=== PATIENT | female | born 1935 | race Caucasian/White ===

== ENCOUNTER 2021-05-29 02:49 | Inpatient (IN) | payer BC, OTHER ==
[~2021-05-29] VITALS: Ht 157.5 cm; Wt 83.0 kg
[~2021-05-29 02:49] MED LIST: AMLO-496 PO; ASPI1TAB19 PO; DIPH25TA26 PO; DOXE10CA PO; DULO60CA PO; FURO40TA4 PO; OMEP20CA74 PO; POTA-220 PO; PREG50CA PO; SIMV-8 PO; ZOLP10TA6 PO
[2021-05-29 03:58] LABS: Basophils # (auto) 0.2 10 ^3/uL (0-0.2); Basophils % (auto) 1.3 % (0.0-2.0); Eosinophils # (auto) 0.1 10 ^3/uL (0-0.8); Eosinophils % (auto) 0.5 % (0.0-7.0); Hematocrit 36.7 % (36.0-46.0); Hemoglobin 12.3 g/dL (12.2-16.2); Lymphocytes # (auto) 0.9 10 ^3/uL (0.4-5.4); Lymphocytes % (auto) 5.4 % (10.0-50.0); Mean Corpuscular Hemoglobin 30.6 pg (28.0-32.0); Mean Corpuscular Hgb Conc. 33.4 g/dL (32.0-36.0); Mean Corpuscular Volume 91.5 fL (80.0-100.0); Monocytes # (auto) 0.6 10 ^3/uL (0-1.3); Monocytes % (auto) 3.5 % (0.0-12.0); Neutrophils # (auto) 15.5 10 ^3/uL (1.6-8.6); Neutrophils % (auto) 89.3 % (37.0-80.0); Red Blood Cells 4.01 10^6/uL (4.0-5.20); Red Cell Distribution Width 14.8 % (11.8-14.3); White Blood Cell 17.4 10^3/uL (4.4-10.8)
[2021-05-29] MEDS ORDERED: SODIUM CHLORIDE 0.9% 500 ML IV ONE (04:00)
[2021-05-29 04:15] LABS: Albumin 3.3 g/dL (3.4-5.0); Calcium 9.1 mg/dL (8.5-10.1); Potassium 4.6 mmol/L (3.5-5.1)
[2021-05-29 04:19] LABS: Bilirubin, Total 0.6 mg/dL (0.2-1.0); Total Protein 6.7 g/dL (6.4-8.2)
[2021-05-29] MEDS ORDERED: CIPROFLOXACIN 400MG/200ML 200 ML IV ONE (09:45)
[2021-05-29] MEDS ORDERED: MORPHINE SULFATE 4 MG/ML SYR/VIAL IV ONE (09:45)
[2021-05-29] MEDS ORDERED: ONDANSETRON HCL 4 MG/2 ML VIAL IV ONE ×2 (09:45→20:15)
[2021-05-29] MEDS ORDERED: MORPHINE SULFATE INJECTION 2 MG/ML SYRG IV PRN (13:45)
[2021-05-29] MEDS ORDERED: NITROGLYCERIN 0.4 MG SL TAB SL PRN (13:45)
[2021-05-29] MEDS: SODIUM CHLORIDE 0.9% 1,000 ML IV SCH (13:45)
[2021-05-29] MEDS ORDERED: LACTULOSE 20Gm/30ML SOLN PO PRN (14:45)
[2021-05-29 15:45] VITALS: BP 101/61
[2021-05-29 17:00] VITALS: BP 97/39
[2021-05-29 20:00] VITALS: BP 137/64
[2021-05-29] MEDS ORDERED: MORPHINE SULFATE INJECTION 2 MG/ML SYRG IV ONE (20:15)
[2021-05-29 22:00] VITALS: BP 137/64
[2021-05-29] MEDS ORDERED: PIPERACILLIN-TAZOB 3.375GM 100 ML IV SCH (22:00)
[2021-05-30] MEDS: LACTULOSE 20Gm/30ML SOLN PO SCH ×5 (06:00→23:55)
[2021-05-30 06:01] LABS: Basophils # (auto) 0 10 ^3/uL (0-0.2); Basophils % (auto) 0.1 % (0.0-2.0); Eosinophils # (auto) 0 10 ^3/uL (0-0.8); Hematocrit 30.4 % (36.0-46.0); Hemoglobin 10.2 g/dL (12.2-16.2); Lymphocytes # (auto) 0.5 10 ^3/uL (0.4-5.4); Lymphocytes % (auto) 3.3 % (10.0-50.0); Mean Corpuscular Hemoglobin 30.4 pg (28.0-32.0); Mean Corpuscular Hgb Conc. 33.6 g/dL (32.0-36.0); Mean Corpuscular Volume 90.5 fL (80.0-100.0); Monocytes # (auto) 1.1 10 ^3/uL (0-1.3); Neutrophils # (auto) 14.2 10 ^3/uL (1.6-8.6); Neutrophils % (auto) 89.6 % (37.0-80.0); Red Blood Cells 3.35 10^6/uL (4.0-5.20); Red Cell Distribution Width 14.7 % (11.8-14.3); White Blood Cell 15.8 10^3/uL (4.4-10.8)
[2021-05-30 06:12] LABS: Albumin 2.6 g/dL (3.4-5.0); Calcium 8.2 mg/dL (8.5-10.1); Potassium 4.4 mmol/L (3.5-5.1)
[2021-05-30 06:18] LABS: Bilirubin, Total 0.4 mg/dL (0.2-1.0); Total Protein 5.5 g/dL (6.4-8.2)
[2021-05-30 09:00] VITALS: BP 108/46
[2021-05-30] MEDS: ENOXAPARIN SOD 40 MG/0.4 ML SYRINGE SC SCH (10:00)
[2021-05-30] MEDS: SODIUM CHLORIDE 0.9% 1,000 ML IV SCH ×2 (11:13→23:05)
[2021-05-30 12:04] VITALS: BP 113/51
[2021-05-30 15:11] LABS: Urine Bacteria NONE SEEN /hpf (None Seen); Urine Blood Negative /uL (Negative); Urine WBC 9 /hpf (0 - 5)
[2021-05-30] MEDS: cefTRIAXone 1GM/50ML D5W 50 ML IV SCH (16:15)
[2021-05-30 16:50] VITALS: BP 100/48
[2021-05-30 20:00] VITALS: BP 93/45
[2021-05-30 22:00] VITALS: BP 93/45
[2021-05-31 05:00] VITALS: BP 105/43
[2021-05-31] MEDS: LACTULOSE 20Gm/30ML SOLN PO SCH ×4 (05:41→17:52)
[2021-05-31 08:00] VITALS: BP 116/5
[2021-05-31] MEDS: cefTRIAXone 1GM/50ML D5W 50 ML IV SCH (09:00)
[2021-05-31] MEDS: ENOXAPARIN SOD 40 MG/0.4 ML SYRINGE SC SCH (10:00)
[2021-05-31 10:18] LABS: Basophils # (auto) 0.1 10 ^3/uL (0-0.2); Basophils % (auto) 1.5 % (0.0-2.0); Eosinophils # (auto) 0 10 ^3/uL (0-0.8); Eosinophils % (auto) 0.5 % (0.0-7.0); Hematocrit 26.7 % (36.0-46.0); Hemoglobin 8.9 g/dL (12.2-16.2); Lymphocytes # (auto) 0.6 10 ^3/uL (0.4-5.4); Mean Corpuscular Hemoglobin 30.4 pg (28.0-32.0); Mean Corpuscular Hgb Conc. 33.5 g/dL (32.0-36.0); Mean Corpuscular Volume 90.7 fL (80.0-100.0); Monocytes # (auto) 0.6 10 ^3/uL (0-1.3); Monocytes % (auto) 6.3 % (0.0-12.0); Neutrophils # (auto) 7.9 10 ^3/uL (1.6-8.6); Neutrophils % (auto) 85.7 % (37.0-80.0); Red Blood Cells 2.94 10^6/uL (4.0-5.20); Red Cell Distribution Width 15.4 % (11.8-14.3); White Blood Cell 9.3 10^3/uL (4.4-10.8)
[2021-05-31 10:33] LABS: Calcium 8.8 mg/dL (8.5-10.1); Potassium 4.1 mmol/L (3.5-5.1)
[2021-05-31 10:35] LABS: BUN/Creatinine Ratio 25.8
[2021-05-31 11:00] VITALS: BP 120/65
[2021-05-31] MEDS ORDERED: ACETAMINOPHEN 325 MG TAB PO PRN (11:30)
[2021-05-31] MEDS ORDERED: ONDANSETRON HCL 4 MG/2 ML VIAL IV PRN (11:30)
[2021-05-31] MEDS: PREGABALIN 25 MG CAP PO SCH ×2 (14:00→21:31)
[2021-05-31 22:00] VITALS: BP 119/53
[2021-05-31] MEDS ORDERED: traZODone HCL 50 MG TAB PO SCH (22:00)
[2021-06-01] MEDS: LACTULOSE 20Gm/30ML SOLN PO SCH ×3 (01:13→12:00)
[2021-06-01 05:15] VITALS: BP 113/50
[2021-06-01 06:01] LABS: Basophils # (auto) 0.1 10 ^3/uL (0-0.2); Basophils % (auto) 1.3 % (0.0-2.0); Eosinophils # (auto) 0.1 10 ^3/uL (0-0.8); Eosinophils % (auto) 1.1 % (0.0-7.0); Hematocrit 26.4 % (36.0-46.0); Hemoglobin 8.9 g/dL (12.2-16.2); Lymphocytes % (auto) 14.4 % (10.0-50.0); Mean Corpuscular Hemoglobin 30.7 pg (28.0-32.0); Mean Corpuscular Hgb Conc. 33.7 g/dL (32.0-36.0); Monocytes # (auto) 0.5 10 ^3/uL (0-1.3); Monocytes % (auto) 7.5 % (0.0-12.0); Neutrophils # (auto) 5.2 10 ^3/uL (1.6-8.6); Neutrophils % (auto) 75.7 % (37.0-80.0); Red Cell Distribution Width 15.1 % (11.8-14.3); White Blood Cell 6.9 10^3/uL (4.4-10.8)
[2021-06-01 06:12] LABS: Calcium 9.1 mg/dL (8.5-10.1)
[2021-06-01 06:15] LABS: BUN/Creatinine Ratio 23.2
[2021-06-01] MEDS: PREGABALIN 25 MG CAP PO SCH ×2 (06:27→14:00)
[2021-06-01 09:00] VITALS: BP 125/58
[2021-06-01] MEDS: cefTRIAXone 1GM/50ML D5W 50 ML IV SCH (09:00)
[2021-06-01] MEDS: ENOXAPARIN SOD 40 MG/0.4 ML SYRINGE SC SCH (10:00)
[2021-06-01] MEDS ORDERED: POLY33504 PO (11:38)
[2021-06-01] MEDS ORDERED: LACT10SO3 PO (11:38)
[2021-06-01 13:00] VITALS: BP 123/57
== END 2021-06-01 15:00 | disposition home or self-care (01) | DRG 388 ==
LOC: EDBD 02:49 → ER 02:52 → OVERFLOW 13:31 → WEST WING 15:26 → CENTRAL 05-30 07:53 → OVERFLOW 05-30 17:28 → CENTRAL 05-30 18:25
PROVIDERS: ADMIT Internal Medicine; ATTEND Internal Medicine
PROC: 05HF33Z Insertion of Infusion Device into Left Cephalic Vein, Percutaneous Approach (ICD-10-PCS; principal; 2021-05-30)
PROC: B54NZZA Ultrasonography of Left Upper Extremity Veins, Guidance (ICD-10-PCS; 2021-05-30)
DX: K56.41 Fecal impaction (principal); N17.0 Acute kidney failure with tubular necrosis; N39.0 Urinary tract infection, site not specified; Z20.822 Contact with and (suspected) exposure to COVID-19; K80.20 Calculus of gallbladder without cholecystitis without obstruction; M79.7 Fibromyalgia; I50.9 Heart failure, unspecified; J44.9 Chronic obstructive pulmonary disease, unspecified; D72.829 Elevated white blood cell count, unspecified; K21.9 Gastro-esophageal reflux disease without esophagitis; Z88.2 Allergy status to sulfonamides; Z79.899 Other long term (current) drug therapy; Z85.3 Personal history of malignant neoplasm of breast; Z90.13 Acquired absence of bilateral breasts and nipples
CPT/HCPCS: 36415; 51702; 74176; 80048; 80053; 81001; 83605; 83690; 84484; 85025; 87040; 87086; 87493; 96361; 96365; 96375; 97163; G0378; J0696; J2405; J2543

== ENCOUNTER 2022-01-26 16:51 | Emergency (ER) | payer OTHER ==
[~2022-01-26] VITALS: Ht 160 cm; Wt 82.0 kg
[~2022-01-26 16:51] MED LIST changes: +LACT10SO3 PO; +POLY33504 PO
[2022-01-26] MEDS ORDERED: ACETAMINOPHEN 325 MG TAB PO ONE (18:45)
[2022-01-26 19:26] LABS: Basophils # (auto) 0.1 10 ^3/uL (0-0.2); Basophils % (auto) 1.2 % (0.0-2.0); Eosinophils # (auto) 0.2 10 ^3/uL (0-0.8); Eosinophils % (auto) 2.8 % (0.0-7.0); Lymphocytes # (auto) 0.7 10 ^3/uL (0.4-5.4); Lymphocytes % (auto) 8.7 % (10.0-50.0); Mean Corpuscular Hemoglobin 30.1 pg (28.0-32.0); Mean Corpuscular Hgb Conc. 33.2 g/dL (32.0-36.0); Mean Corpuscular Volume 90.7 fL (80.0-100.0); Monocytes # (auto) 0.6 10 ^3/uL (0-1.3); Monocytes % (auto) 7.9 % (0.0-12.0); Neutrophils # (auto) 6.2 10 ^3/uL (1.6-8.6); Neutrophils % (auto) 79.4 % (37.0-80.0); Nucleated Red Blood Cells % 0.1 %; Red Blood Cells 3.97 10^6/uL (4.0-5.20); Red Cell Distribution Width 14.2 % (11.8-14.3); White Blood Cell 7.9 10^3/uL (4.4-10.8)
[2022-01-26 19:50] LABS: Potassium 4.4 mmol/L (3.5-5.1)
[2022-01-26 19:51] LABS: Albumin 3.4 g/dL (3.4-5.0); BUN/Creatinine Ratio 19.9; Bilirubin, Total 0.3 mg/dL (0.2-1.0); Calcium 8.6 mg/dL (8.5-10.1); Total Protein 6.4 g/dL (6.4-8.2)
[2022-01-26] MEDS ORDERED: TETANUS-DIPTH-ACEL PERTUSSIS 0.5ML SYR Tdap IM ONE (22:15)
[2022-01-26] MEDS ORDERED: LIDOCAINE 1% HCL (LOCAL ANESTH.) INJ 20ML MDV IJ ONE (22:15)
[2022-01-26] MEDS ORDERED: DOXY-286 PO (23:35)
[2022-01-26] MEDS ORDERED: CEPH-510 PO (23:35)
[2022-01-26] MEDS ORDERED: BACITRACIN TOP OINT 1 UD PKG TOP ONE (23:45)
[2022-01-27] VITALS: BP 115/48
== END 2022-01-27 00:37 | disposition home or self-care (01) ==
LOC: ER 16:51 → EDUNIT# 16:51 → EDBD 16:51 → ER 01-27 00:15
DX: S81.811A Laceration without foreign body, right lower leg, initial encounter (principal); I50.9 Heart failure, unspecified; J44.9 Chronic obstructive pulmonary disease, unspecified; K21.9 Gastro-esophageal reflux disease without esophagitis; Z90.89 Acquired absence of other organs; Z79.82 Long term (current) use of aspirin; Z79.2 Long term (current) use of antibiotics; Z79.899 Other long term (current) drug therapy; Z88.2 Allergy status to sulfonamides; W01.0XXA Fall on same level from slipping, tripping and stumbling without subsequent striking against object, initial encounter; Y93.89 Activity, other specified; Y92.89 Other specified places as the place of occurrence of the external cause; Y99.8 Other external cause status
CPT/HCPCS: 12002; 36415; 70450; 73562; 73590; 73610; 73630; 80053; 84484; 85025; 90471; 90715; 93005; 99285; J2001

== ENCOUNTER 2023-02-13 12:22 | Inpatient (IN) | payer OTHER ==
[~2023-02-13] VITALS: Ht 160 cm; Wt 77.2 kg
[~2023-02-13 12:22] MED LIST changes: -AMLO-496 PO; +AMLO1TAB23 PO; +CEPH-510 PO; +DOXY-286 PO; -DULO60CA PO; +DULO60CA41 PO; -SIMV-8 PO; +SIMV20TA20 PO
[2023-02-13 13:20] LABS: Basophils # (auto) 0 10 ^3/uL (0-0.2); Eosinophils # (auto) 0 10 ^3/uL (0-0.8); Hematocrit 30.7 % (36.0-46.0); Hemoglobin 9.7 g/dL (12.2-16.2); Lymphocytes # (auto) 0.3 10 ^3/uL (0.4-5.4); Lymphocytes % (auto) 2.7 % (10.0-50.0); Mean Corpuscular Hemoglobin 28.5 pg (28.0-32.0); Mean Corpuscular Hgb Conc. 31.7 g/dL (32.0-36.0); Mean Corpuscular Volume 89.9 fL (80.0-100.0); Monocytes # (auto) 0.8 10 ^3/uL (0-1.3); Monocytes % (auto) 6.4 % (0.0-12.0); Neutrophils # (auto) 10.8 10 ^3/uL (1.6-8.6); Neutrophils % (auto) 90.9 % (37.0-80.0); Red Blood Cells 3.42 10^6/uL (4.0-5.20); Red Cell Distribution Width 15.5 % (11.8-14.3); White Blood Cell 11.8 10^3/uL (4.4-10.8)
[2023-02-13 13:40] LABS: Alanine Aminotransferase 25 U/L (7-40); Albumin 4.1 g/dL (3.2-4.8); Alkaline Phosphatase 74 U/L (46-116); Anion Gap 9 (5-15); Aspartate Aminotransferase 25 U/L (13-40); BUN/Creatinine Ratio 19.6 (10.0-20.0); Bilirubin, Total 0.3 mg/dL (0.2-1.0); Blood Urea Nitrogen 55 mg/dL (9-23); Calcium 7.9 mg/dL (8.7-10.4); Carbon Dioxide 18 mmol/L (20-30); Chloride 98 mmol/L (98-107); Glucose 137 mg/dL (74-106); INR 1.04 (0.9-1.15); Magnesium 1.8 mg/dL (1.6-2.6); Partial Thromboplastin Time 28.4 SEC (24.5-34.5); Prothrombin Time 10.9 sec (9.3-11.8); Sodium 125 mmol/L (136-145); Total Protein 6.4 g/dL (5.7-8.2)
[2023-02-13 14:00] LABS: Potassium 5.6 mmol/L (3.5-5.1)
[2023-02-13] MEDS ORDERED: ALBUTEROL SULF 2.5 MG/0.5ML(0.5%) NEB SOLN NEB ONE (14:15)
[2023-02-13] MEDS ORDERED: SODIUM ZIRCONIUM CYCL 10 GM PAK PO ONE (14:15)
[2023-02-13] MEDS ORDERED: FUROSEMIDE 40 MG/4 ML VIAL IV ONE (14:15)
[2023-02-13] MEDS ORDERED: CALCIUM GLUC 1,000mg/50ml-NS 50 ML IV ONE (14:15)
[2023-02-13] MEDS ORDERED: HYDROcodone-ACET 5/325MG TAB PO PRN (17:00)
[2023-02-13] MEDS ORDERED: cefTRIAXone 1GM/50ML D5W 50 ML IV ONE (17:00)
[2023-02-13] MEDS ORDERED: NITROGLYCERIN 0.4 MG SL TAB SL PRN (17:00)
[2023-02-13] MEDS ORDERED: ACETAMINOPHEN 500 MG TAB PO PRN (17:00)
[2023-02-13] MEDS ORDERED: ONDANSETRON HCL 4 MG/2 ML VIAL IV PRN (17:00)
[2023-02-13] MEDS ORDERED: MORPHINE SULFATE INJ 2 MG/ml SYRG IV PRN ×2 (17:00)
[2023-02-13 18:30] VITALS: PULSE 82; RESP 18; O2SAT 97
[2023-02-13 18:40] VITALS: PULSE 85; RESP 20; O2SAT 98
[2023-02-13 18:54] VITALS: BP 101/50; PULSE 85; RESP 20; O2SAT 97
[2023-02-13] MEDS: ALBUTEROL SULF 2.5 MG/0.5ML(0.5%) NEB SOLN NEB SCH (19:12)
[2023-02-13] MEDS: IPRATROPIUM BROM 0.5 MG/2.5ML INH SOL NEB SCH (19:12)
[2023-02-13] MEDS: BUDESONIDE (INHALATION) 0.5 MG/2 ML NEB NEB SCH (19:13)
[2023-02-13 21:46] VITALS: PULSE 80; RESP 20; O2SAT 97
[2023-02-13] MEDS: FUROSEMIDE 20 MG/2 ML VIAL IV SCH (21:49)
[2023-02-13] MEDS: DOXYCYCLINE 100MG/250ML 250 ML IV SCH (22:09)
[2023-02-13] MEDS: ATORVASTATIN 20 MG TAB PO SCH (22:09)
[2023-02-13] MEDS: PREGABALIN 25 MG CAP PO SCH (22:11)
[2023-02-13 22:35] LABS: Rapid Influenza A Negative (Negative); Rapid Influenza B Negative (Negative)
[2023-02-14] VITALS (16 sets, daily range): BP systolic 89–188; BP diastolic 37–154; PULSE 82–118; RESP 16–23; TEMP 97.3–98.4; O2SAT 93–100
[2023-02-14] MEDS: FUROSEMIDE 20 MG/2 ML VIAL IV SCH ×2 (05:29→18:19)
[2023-02-14] MEDS: DOXYCYCLINE 100MG/250ML 250 ML IV SCH ×2 (05:29→18:10)
[2023-02-14] MEDS: PREGABALIN 25 MG CAP PO SCH ×3 (05:30→21:50)
[2023-02-14] MEDS: ALBUTEROL SULF 2.5 MG/0.5ML(0.5%) NEB SOLN NEB SCH ×3 (06:31→18:11)
[2023-02-14] MEDS: BUDESONIDE (INHALATION) 0.5 MG/2 ML NEB NEB SCH (06:31)
[2023-02-14] MEDS: IPRATROPIUM BROM 0.5 MG/2.5ML INH SOL NEB SCH ×3 (06:31→18:11)
[2023-02-14] MEDS ORDERED: TRAZ-228 PO (06:54)
[2023-02-14] MEDS ORDERED: FLUT50SP (06:54)
[2023-02-14] MEDS ORDERED: FURO40TA4 PO (06:54)
[2023-02-14] MEDS ORDERED: TRAV0.00 EACHEYE (06:54)
[2023-02-14] MEDS ORDERED: LISI10TA34 PO (06:54)
[2023-02-14 07:17] LABS: Basophils # (auto) 0 10 ^3/uL (0-0.2); Basophils % (auto) 0.1 % (0.0-2.0); Eosinophils # (auto) 0 10 ^3/uL (0-0.8); Eosinophils % (auto) 0.1 % (0.0-7.0); Hematocrit 29.3 % (36.0-46.0); Hemoglobin 9.3 g/dL (12.2-16.2); Lymphocytes # (auto) 0.5 10 ^3/uL (0.4-5.4); Lymphocytes % (auto) 4.2 % (10.0-50.0); Mean Corpuscular Hemoglobin 28.7 pg (28.0-32.0); Mean Corpuscular Hgb Conc. 31.9 g/dL (32.0-36.0); Mean Corpuscular Volume 90.1 fL (80.0-100.0); Monocytes # (auto) 1.5 10 ^3/uL (0-1.3); Monocytes % (auto) 11.6 % (0.0-12.0); Neutrophils # (auto) 10.9 10 ^3/uL (1.6-8.6); Red Blood Cells 3.25 10^6/uL (4.0-5.20); Red Cell Distribution Width 15.7 % (11.8-14.3)
[2023-02-14 07:22] LABS: Alanine Aminotransferase 21 U/L (7-40); Albumin 3.7 g/dL (3.2-4.8); Alkaline Phosphatase 63 U/L (46-116); Anion Gap 11 (5-15); Aspartate Aminotransferase 24 U/L (13-40); BUN/Creatinine Ratio 10.6 (10.0-20.0); Calcium 8.3 mg/dL (8.5-10.1); Carbon Dioxide 16 mmol/L (20-30); Chloride 97 mmol/L (98-107); Glucose 123 mg/dL (74-106); Potassium 5.3 mmol/L (3.5-5.1); Sodium 124 mmol/L (136-145)
[2023-02-14 07:23] LABS: Bilirubin, Total 0.2 mg/dL (0.2-1.0); Total Protein 5.8 g/dL (5.7-8.2)
[2023-02-14 07:28] LABS: Blood Urea Nitrogen 38 mg/dL (9-23)
[2023-02-14] MEDS: ZOLPIDEM TARTRATE 5 MG TAB PO SCH ×2 (08:14→21:50)
[2023-02-14] MEDS ORDERED: AZITHROMYCIN 500MG/ 250ML 250 ML IV SCH (10:00)
[2023-02-14] MEDS: DULoxetine HCL 30 MG CAP PO SCH (10:09)
[2023-02-14] MEDS: cefTRIAXone 1GM/50ML D5W 50 ML IV SCH (10:09)
[2023-02-14] MEDS ORDERED: SODIUM ZIRCONIUM CYCL 10 GM PAK PO ONE (11:00)
[2023-02-14] MEDS ORDERED: SODIUM BICARBONATE 50ML VIAL 50 ML in SOD CHL 0.45% 1,000 ML IV SCH (12:00)
[2023-02-14 17:06] LABS: Sodium Urine < 10 mmol/L (40-220)
[2023-02-14 17:12] LABS: Protein, Urine 44.7 mg/dL (0.0-11.9)
[2023-02-14 17:15] LABS: Creatinine, Urine 188.51 mg/dL (30.0-125.0); Urine Protein/Creatinine Ratio 0.24
[2023-02-14 17:44] LABS: Urine Bacteria FEW /hpf (None Seen); Urine Blood Negative /uL (Negative); Urine Clarity HAZY (Clear); Urine Color Yellow (Yellow); Urine Hyaline Cast MANY /lpf (0 - 2); Urine Mucus FEW (None Seen); Urine Protein, UAD 1+ (Negative); Urine Specific Gravity 1.019 (1.001-1.035); Urine Urobilinogen Normal (Negative); Urine WBC 20 /hpf (0 - 5)
[2023-02-14] MEDS: ATORVASTATIN 20 MG TAB PO SCH (21:50)
[2023-02-15] VITALS (13 sets, daily range): BP systolic 88–96; BP diastolic 40–78; PULSE 79–90; RESP 17–23; TEMP 97.7–98.9; O2SAT 91–99
[2023-02-15] MEDS: PREGABALIN 25 MG CAP PO SCH ×3 (05:15→23:00)
[2023-02-15] MEDS: ALBUTEROL SULF 2.5 MG/0.5ML(0.5%) NEB SOLN NEB SCH ×3 (05:41→19:03)
[2023-02-15] MEDS: BUDESONIDE (INHALATION) 0.5 MG/2 ML NEB NEB SCH ×2 (05:42→19:03)
[2023-02-15] MEDS: IPRATROPIUM BROM 0.5 MG/2.5ML INH SOL NEB SCH ×3 (05:42→19:03)
[2023-02-15] MEDS: DOXYCYCLINE 100MG/250ML 250 ML IV SCH ×2 (05:50→18:14)
[2023-02-15] MEDS: FUROSEMIDE 20 MG/2 ML VIAL IV SCH (05:57)
[2023-02-15 06:55] LABS: Basophils # (auto) 0 10 ^3/uL (0-0.2); Basophils % (auto) 0.1 % (0.0-2.0); Eosinophils # (auto) 0.3 10 ^3/uL (0-0.8); Eosinophils % (auto) 2.2 % (0.0-7.0); Hematocrit 29.1 % (36.0-46.0); Hemoglobin 9.3 g/dL (12.2-16.2); Lymphocytes # (auto) 0.7 10 ^3/uL (0.4-5.4); Lymphocytes % (auto) 6.2 % (10.0-50.0); Mean Corpuscular Hemoglobin 28.9 pg (28.0-32.0); Mean Corpuscular Hgb Conc. 32.1 g/dL (32.0-36.0); Monocytes # (auto) 0.9 10 ^3/uL (0-1.3); Monocytes % (auto) 7.6 % (0.0-12.0); Neutrophils # (auto) 9.8 10 ^3/uL (1.6-8.6); Neutrophils % (auto) 83.9 % (37.0-80.0); Nucleated Red Blood Cells % 0.1 %; Red Blood Cells 3.23 10^6/uL (4.0-5.20); Red Cell Distribution Width 15.4 % (11.8-14.3); White Blood Cell 11.7 10^3/uL (4.4-10.8)
[2023-02-15 07:12] LABS: Chloride 95 mmol/L (98-107); Potassium 4.7 mmol/L (3.5-5.1); Sodium 122 mmol/L (136-145)
[2023-02-15 07:13] LABS: Anion Gap 10 (5-15); Carbon Dioxide 17 mmol/L (20-30)
[2023-02-15 07:18] LABS: BUN/Creatinine Ratio 12.1 (10.0-20.0); Blood Urea Nitrogen 45 mg/dL (9-23); Glucose 111 mg/dL (74-106)
[2023-02-15] MEDS: DULoxetine HCL 30 MG CAP PO SCH (09:38)
[2023-02-15] MEDS: cefTRIAXone 1GM/50ML D5W 50 ML IV SCH (09:39)
[2023-02-15] MEDS ORDERED: SODIUM BICARBONATE 50ML VIAL 50 ML in SOD CHL 0.45% 1,000 ML IV SCH (12:15)
[2023-02-15] MEDS: FUROSEMIDE 40 MG/4 ML VIAL IV SCH ×2 (12:15→18:23)
[2023-02-15] MEDS ORDERED: SODIUM CHLORIDE 0.9% 500 ML IV ONE ×2 (12:15→12:30)
[2023-02-15] MEDS ORDERED: SODIUM BICARBONATE 650 MG TAB ONE ×3 (13:08→22:56)
[2023-02-15] MEDS: SODIUM BICARBONATE 650 MG TAB PO SCH ×3 (13:08→23:01)
[2023-02-15] MEDS ORDERED: FUROSEMIDE 40 MG/4 ML VIAL ONE (18:23)
[2023-02-15] MEDS ORDERED: SODIUM BICARBONATE 50ML VIAL 150 ML in D5W 5% 1,000 ML IV ONE (18:30)
[2023-02-15] MEDS: ATORVASTATIN 20 MG TAB PO SCH (23:01)
[2023-02-15] MEDS: ZOLPIDEM TARTRATE 5 MG TAB PO SCH (23:02)
[2023-02-16] VITALS (64 sets, daily range): BP systolic 79–121; BP diastolic 26–63; PULSE 78–93; RESP 8–43; TEMP 97.8–98.8; O2SAT 85–100
[2023-02-16] MEDS ORDERED: MIDODRINE HCL 10 MG TAB PO ONE (02:30)
[2023-02-16] MEDS ORDERED: MIDODRINE HCL 10 MG TAB ONE ×3 (02:37→21:29)
[2023-02-16] MEDS ORDERED: PANTOPRAZOLE 40 MG/10 ML VIAL INJ IV ONE ×3 (04:15→21:29)
[2023-02-16] MEDS ORDERED: FUROSEMIDE 20 MG/2 ML VIAL IV ONE (05:15)
[2023-02-16] MEDS: DOXYCYCLINE 100MG/250ML 250 ML IV SCH ×2 (05:22→17:43)
[2023-02-16] MEDS ORDERED: FUROSEMIDE 20 MG/2 ML VIAL ONE (05:29)
[2023-02-16 05:35] LABS: Chloride 92 mmol/L (98-107); Potassium 4.6 mmol/L (3.5-5.1); Sodium 121 mmol/L (136-145)
[2023-02-16 05:36] LABS: Anion Gap 10 (5-15); Calcium 8.1 mg/dL (8.7-10.4); Carbon Dioxide 19 mmol/L (20-30)
[2023-02-16 05:41] LABS: BUN/Creatinine Ratio 15.1 (10.0-20.0); Blood Urea Nitrogen 54 mg/dL (9-23); Glucose 113 mg/dL (74-106)
[2023-02-16 05:49] LABS: Basophils # (auto) 0 10 ^3/uL (0-0.2); Basophils % (auto) 0.2 % (0.0-2.0); Eosinophils # (auto) 0.1 10 ^3/uL (0-0.8); Eosinophils % (auto) 1.1 % (0.0-7.0); Hematocrit 28.7 % (36.0-46.0); Hemoglobin 9.6 g/dL (12.2-16.2); Lymphocytes # (auto) 0.4 10 ^3/uL (0.4-5.4); Lymphocytes % (auto) 3.2 % (10.0-50.0); Mean Corpuscular Hemoglobin 29.6 pg (28.0-32.0); Mean Corpuscular Hgb Conc. 33.3 g/dL (32.0-36.0); Monocytes # (auto) 0.9 10 ^3/uL (0-1.3); Monocytes % (auto) 7.7 % (0.0-12.0); Neutrophils # (auto) 10.2 10 ^3/uL (1.6-8.6); Neutrophils % (auto) 87.8 % (37.0-80.0); Red Blood Cells 3.23 10^6/uL (4.0-5.20); Red Cell Distribution Width 15.2 % (11.8-14.3); White Blood Cell 11.6 10^3/uL (4.4-10.8)
[2023-02-16] MEDS: MIDODRINE HCL 10 MG TAB PO SCH ×3 (06:00→21:35)
[2023-02-16] MEDS: SODIUM BICARBONATE 650 MG TAB PO SCH ×4 (06:00→21:35)
[2023-02-16] MEDS: PREGABALIN 25 MG CAP PO SCH ×3 (06:00→21:35)
[2023-02-16] MEDS: IPRATROPIUM BROM 0.5 MG/2.5ML INH SOL NEB SCH ×4 (07:20→18:02)
[2023-02-16] MEDS: BUDESONIDE (INHALATION) 0.5 MG/2 ML NEB NEB SCH ×2 (07:20→18:02)
[2023-02-16] MEDS: ALBUTEROL SULF 2.5 MG/0.5ML(0.5%) NEB SOLN NEB SCH ×4 (07:20→18:02)
[2023-02-16 07:28] LABS: Base Excess -7.8 mmol/L (-2.0-2.0)
[2023-02-16] MEDS ORDERED: FUROSEMIDE 40 MG/4 ML VIAL IV ONE (08:00)
[2023-02-16] MEDS ORDERED: SODIUM CHL 3% 100 ML IV ONE (08:00)
[2023-02-16] MEDS: DULoxetine HCL 30 MG CAP PO SCH ×2 (10:00→18:59)
[2023-02-16] MEDS ORDERED: PANTOPRAZOLE 40 MG/10 ML VIAL INJ IV SCH (10:00)
[2023-02-16] MEDS ORDERED: NOREPINEPHRINE 8 MG/250ML KIT 250 ML IV ONE (11:05)
[2023-02-16] MEDS: NOREPINEPHRINE 8 MG/250ML KIT 250 ML IV SCH (11:16)
[2023-02-16] MEDS ORDERED: VANCOMYCIN 1GM/200ML 250 ML IV ONE ×2 (12:15→12:39)
[2023-02-16] MEDS ORDERED: VANCOMYCIN PER PHARMACY 0 MG IV SCH (12:15)
[2023-02-16] MEDS: cefTRIAXone 1GM/50ML D5W 50 ML IV SCH (14:11)
[2023-02-16] MEDS ORDERED: LIDOCAINE 1% (LOCAL ANESTH.) PF 5ml SDV ID ONE (14:15)
[2023-02-16] MEDS: BUMETANIDE INJECTION 25 MG in GIVE UN-DILUTED 0 ML IV SCH (14:29)
[2023-02-16 14:38] LABS: Chloride 93 mmol/L (98-107); Potassium 4.9 mmol/L (3.5-5.1); Sodium 123 mmol/L (136-145)
[2023-02-16 14:39] LABS: Anion Gap 11 (5-15); Calcium 8.3 mg/dL (8.5-10.1); Carbon Dioxide 19 mmol/L (20-30)
[2023-02-16 14:44] LABS: BUN/Creatinine Ratio 16.8 (10.0-20.0); Blood Urea Nitrogen 56 mg/dL (9-23); Glucose 115 mg/dL (74-106)
[2023-02-16] MEDS ORDERED: FUROSEMIDE 100 MG/10ML VIAL IV SCH (18:00)
[2023-02-16] MEDS ORDERED: SODIUM BICARBONATE 650 MG TAB ONE ×2 (18:50→21:30)
[2023-02-16] MEDS: SODIUM CHLOR 0.9% PF (SALINE LOCK) 10ML VIAL/SYR IV SCH (21:34)
[2023-02-16] MEDS: PANTOPRAZOLE 40 MG/10 ML VIAL INJ IV SCH (21:34)
[2023-02-16] MEDS: ZOLPIDEM TARTRATE 5 MG TAB PO SCH (21:35)
[2023-02-16] MEDS: ATORVASTATIN 20 MG TAB PO SCH (21:35)
[2023-02-17] VITALS (101 sets, daily range): BP systolic 75–143; BP diastolic 34–71; PULSE 74–94; RESP 9–20; TEMP 97.6–98.4; O2SAT 89–100
[2023-02-17] MEDS: PROMETHAZINE-DM 5 ML ORAL SYRUP PO PRN ×2 (02:58→12:25)
[2023-02-17 05:28] LABS: Chloride 94 mmol/L (98-107); Potassium 4.5 mmol/L (3.5-5.1); Sodium 123 mmol/L (136-145)
[2023-02-17 05:29] LABS: Anion Gap 8 (5-15); Carbon Dioxide 21 mmol/L (20-30)
[2023-02-17 05:34] LABS: BUN/Creatinine Ratio 18.8 (10.0-20.0); Blood Urea Nitrogen 54 mg/dL (9-23); Glucose 101 mg/dL (74-106)
[2023-02-17 05:50] LABS: Basophils # (auto) 0 10 ^3/uL (0-0.2); Basophils % (auto) 0.2 % (0.0-2.0); Eosinophils # (auto) 0.2 10 ^3/uL (0-0.8); Eosinophils % (auto) 2.3 % (0.0-7.0); Hematocrit 28.1 % (36.0-46.0); Hemoglobin 9.3 g/dL (12.2-16.2); Lymphocytes # (auto) 0.5 10 ^3/uL (0.4-5.4); Lymphocytes % (auto) 5.7 % (10.0-50.0); Mean Corpuscular Hemoglobin 29.4 pg (28.0-32.0); Mean Corpuscular Hgb Conc. 33.2 g/dL (32.0-36.0); Mean Corpuscular Volume 88.6 fL (80.0-100.0); Monocytes # (auto) 0.8 10 ^3/uL (0-1.3); Monocytes % (auto) 8.5 % (0.0-12.0); Neutrophils # (auto) 7.7 10 ^3/uL (1.6-8.6); Neutrophils % (auto) 83.3 % (37.0-80.0); Red Blood Cells 3.17 10^6/uL (4.0-5.20); White Blood Cell 9.3 10^3/uL (4.4-10.8)
[2023-02-17] MEDS: SODIUM BICARBONATE 650 MG TAB PO SCH ×4 (05:57→22:00)
[2023-02-17] MEDS: DOXYCYCLINE 100MG/250ML 250 ML IV SCH ×2 (05:57→17:23)
[2023-02-17] MEDS: PREGABALIN 25 MG CAP PO SCH ×3 (05:57→22:00)
[2023-02-17] MEDS: MIDODRINE HCL 10 MG TAB PO SCH ×3 (05:57→22:00)
[2023-02-17] MEDS: BUDESONIDE (INHALATION) 0.5 MG/2 ML NEB NEB SCH ×2 (06:35→17:40)
[2023-02-17] MEDS ORDERED: VANCOMYCIN 1GM/200ML 250 ML IV ONE (08:00)
[2023-02-17] MEDS ORDERED: SODIUM CHL 3% 100 ML IV ONE (08:00)
[2023-02-17] MEDS: NOREPINEPHRINE 8 MG/250ML KIT 250 ML IV SCH ×2 (09:45→19:14)
[2023-02-17] MEDS: SODIUM CHLOR 0.9% PF (SALINE LOCK) 10ML VIAL/SYR IV SCH ×2 (10:43→22:01)
[2023-02-17] MEDS: DULoxetine HCL 30 MG CAP PO SCH (10:43)
[2023-02-17] MEDS: PANTOPRAZOLE 40 MG/10 ML VIAL INJ IV SCH ×2 (10:43→22:00)
[2023-02-17] MEDS: cefTRIAXone 1GM/50ML D5W 50 ML IV SCH (11:05)
[2023-02-17] MEDS: BUMETANIDE INJECTION 25 MG in GIVE UN-DILUTED 0 ML IV SCH (11:10)
[2023-02-17] MEDS: IPRATROPIUM BROM 0.5 MG/2.5ML INH SOL NEB SCH ×2 (13:09→17:40)
[2023-02-17] MEDS: ALBUTEROL SULF 2.5 MG/0.5ML(0.5%) NEB SOLN NEB SCH ×2 (13:09→17:40)
[2023-02-17] MEDS: ZOLPIDEM TARTRATE 5 MG TAB PO SCH (22:00)
[2023-02-17] MEDS: ATORVASTATIN 20 MG TAB PO SCH (22:00)
[2023-02-18] VITALS (104 sets, daily range): BP systolic 91–125; BP diastolic 33–58; PULSE 67–88; RESP 9–18; TEMP 97.7–99; O2SAT 86–100
[2023-02-18] MEDS: MIDODRINE HCL 10 MG TAB PO SCH ×3 (06:07→21:49)
[2023-02-18] MEDS: SODIUM BICARBONATE 650 MG TAB PO SCH ×2 (06:07→13:02)
[2023-02-18] MEDS: DOXYCYCLINE 100MG/250ML 250 ML IV SCH ×2 (06:07→17:31)
[2023-02-18] MEDS: PREGABALIN 25 MG CAP PO SCH ×3 (06:08→21:49)
[2023-02-18] MEDS: ALBUTEROL SULF 2.5 MG/0.5ML(0.5%) NEB SOLN NEB SCH ×3 (06:11→18:48)
[2023-02-18] MEDS: IPRATROPIUM BROM 0.5 MG/2.5ML INH SOL NEB SCH ×3 (06:11→18:48)
[2023-02-18] MEDS: BUDESONIDE (INHALATION) 0.5 MG/2 ML NEB NEB SCH ×2 (06:11→18:48)
[2023-02-18 06:29] LABS: Anion Gap 10 (5-15); Carbon Dioxide 24 mmol/L (20-30); Chloride 93 mmol/L (98-107); Potassium 4.4 mmol/L (3.5-5.1); Sodium 127 mmol/L (136-145)
[2023-02-18 06:30] LABS: Calcium 8.5 mg/dL (8.5-10.1); Hematocrit 28.7 % (36.0-46.0); Hemoglobin 9.4 g/dL (12.2-16.2); Mean Corpuscular Hemoglobin 28.9 pg (28.0-32.0); Mean Corpuscular Hgb Conc. 32.8 g/dL (32.0-36.0); Mean Corpuscular Volume 88.1 fL (80.0-100.0); Red Blood Cells 3.26 10^6/uL (4.0-5.20); Red Cell Distribution Width 15.1 % (11.8-14.3); White Blood Cell 9.5 10^3/uL (4.4-10.8)
[2023-02-18 06:35] LABS: BUN/Creatinine Ratio 33.2 (10.0-20.0); Glucose 92 mg/dL (74-106)
[2023-02-18 06:39] LABS: Blood Urea Nitrogen 66 mg/dL (9-23)
[2023-02-18 06:53] LABS: Basophils % (manual) 0 (0.0-2.0); Blast Cells 0; Metamyelocytes % 0; Myelocytes % 0; Promyelocytes % 0; Reactive Lymphocytes 0
[2023-02-18 09:01] LABS: Band Neutrophils % (manual) 1; Eosinophils % (manual) 5 (0-7); Lymphocytes % (manual) 8 (10.0-50.0); Monocytes % (manual) 9 (0-12)
[2023-02-18 09:02] LABS: Anisocytosis Slight; Platelet Estimate Adequate
[2023-02-18] MEDS: PANTOPRAZOLE 40 MG/10 ML VIAL INJ IV SCH ×2 (09:51→21:49)
[2023-02-18] MEDS: BUMETANIDE INJECTION 25 MG in GIVE UN-DILUTED 0 ML IV SCH (09:53)
[2023-02-18] MEDS: SODIUM CHLOR 0.9% PF (SALINE LOCK) 10ML VIAL/SYR IV SCH ×2 (09:53→21:49)
[2023-02-18] MEDS: DULoxetine HCL 30 MG CAP PO SCH (09:54)
[2023-02-18] MEDS: cefTRIAXone 1GM/50ML D5W 50 ML IV SCH (10:41)
[2023-02-18 15:36] LABS: Magnesium 1.3 mg/dL (1.6-2.6)
[2023-02-18 15:37] LABS: Phosphorus 5.5 mg/dL (2.4-5.1)
[2023-02-18 16:24] LABS: Base Excess 2.8 mmol/L (-2.0-2.0)
[2023-02-18] MEDS: MAGNESIUM SULFATE 1GM/100ML 100 ML IV SCH ×2 (16:57→17:57)
[2023-02-18] MEDS: BUMETANIDE 2.5mg/10ml (0.25 mg/ml) INJ IV SCH (17:57)
[2023-02-18] MEDS: CALCIUM ACETATE 667 MG CAP PO SCH (17:57)
[2023-02-18] MEDS: ATORVASTATIN 20 MG TAB PO SCH (21:49)
[2023-02-18] MEDS: methylPREDNISolone SOD SUCC 40 MG/ML VL IV SCH (21:50)
[2023-02-18] MEDS: ZOLPIDEM TARTRATE 5 MG TAB PO SCH (21:50)
[2023-02-19] VITALS (72 sets, daily range): BP systolic 98–137; BP diastolic 39–62; PULSE 69–85; RESP 9–22; TEMP 97.7–98.5; O2SAT 83–100
[2023-02-19] MEDS: MIDODRINE HCL 10 MG TAB PO SCH ×3 (05:52→21:24)
[2023-02-19] MEDS: PREGABALIN 25 MG CAP PO SCH ×3 (05:52→21:25)
[2023-02-19] MEDS: DOXYCYCLINE 100MG/250ML 250 ML IV SCH (05:53)
[2023-02-19] MEDS: BUMETANIDE 2.5mg/10ml (0.25 mg/ml) INJ IV SCH (05:55)
[2023-02-19 06:35] LABS: Hematocrit 28.3 % (36.0-46.0); Hemoglobin 9.4 g/dL (12.2-16.2); Mean Corpuscular Hgb Conc. 33.2 g/dL (32.0-36.0); Mean Corpuscular Volume 87.2 fL (80.0-100.0); Red Blood Cells 3.25 10^6/uL (4.0-5.20); Red Cell Distribution Width 14.7 % (11.8-14.3)
[2023-02-19 06:45] LABS: Anion Gap 8 (5-15); Calcium 8.5 mg/dL (8.7-10.4); Carbon Dioxide 29 mmol/L (20-30); Chloride 91 mmol/L (98-107); Potassium 3.7 mmol/L (3.5-5.1); Sodium 128 mmol/L (136-145)
[2023-02-19 06:46] LABS: Band Neutrophils % (manual) 0; Basophils % (manual) 0 (0.0-2.0); Blast Cells 0; Eosinophils % (manual) 0 (0-7); Metamyelocytes % 0; Myelocytes % 0; Promyelocytes % 0; Reactive Lymphocytes 0
[2023-02-19 06:51] LABS: % Iron Saturation 21.4 % (15-50); BUN/Creatinine Ratio 30.6 (10.0-20.0); Glucose 178 mg/dL (74-106)
[2023-02-19 06:55] LABS: Blood Urea Nitrogen 44 mg/dL (9-23)
[2023-02-19] MEDS: ALBUTEROL SULF 2.5 MG/0.5ML(0.5%) NEB SOLN NEB SCH ×3 (07:24→19:22)
[2023-02-19] MEDS: IPRATROPIUM BROM 0.5 MG/2.5ML INH SOL NEB SCH ×3 (07:24→19:22)
[2023-02-19] MEDS: methylPREDNISolone SOD SUCC 40 MG/ML VL IV SCH ×2 (09:17→21:25)
[2023-02-19] MEDS: PANTOPRAZOLE 40 MG/10 ML VIAL INJ IV SCH ×2 (09:17→21:25)
[2023-02-19] MEDS: SODIUM CHLOR 0.9% PF (SALINE LOCK) 10ML VIAL/SYR IV SCH (09:18)
[2023-02-19] MEDS: DULoxetine HCL 30 MG CAP PO SCH (09:18)
[2023-02-19] MEDS: cefTRIAXone 1GM/50ML D5W 50 ML IV SCH (09:18)
[2023-02-19] MEDS: CALCIUM ACETATE 667 MG CAP PO SCH ×3 (09:18→18:50)
[2023-02-19 09:44] LABS: Lymphocytes % (manual) 2 (10.0-50.0); Monocytes % (manual) 2 (0-12); Platelet Estimate Adequate
[2023-02-19] MEDS: NOREPINEPHRINE 8 MG/250ML KIT 250 ML IV SCH (09:45)
[2023-02-19] MEDS: BUDESONIDE (INHALATION) 0.5 MG/2 ML NEB NEB SCH ×2 (10:00→19:21)
[2023-02-19] MEDS: FERROUS SULFATE 325mg EC TAB PO SCH (18:50)
[2023-02-19] MEDS: BUMETANIDE 1mg/4ml VIAL (0.25mg/ml) IV SCH (19:25)
[2023-02-19] MEDS: ATORVASTATIN 20 MG TAB PO SCH (21:24)
[2023-02-19] MEDS: DOXYCYCLINE 100 MG TAB/CAP PO SCH (21:24)
[2023-02-19] MEDS: DOCUSATE SOD 100 MG CAP PO SCH (21:24)
[2023-02-19] MEDS: ZOLPIDEM TARTRATE 5 MG TAB PO SCH (22:00)
[2023-02-20] VITALS (22 sets, daily range): BP systolic 92–157; BP diastolic 44–130; PULSE 69–84; RESP 12–20; TEMP 97.3–98.6; O2SAT 90–100
[2023-02-20] MEDS: ZOLPIDEM TARTRATE 5 MG TAB PO SCH (00:45)
[2023-02-20 06:06] LABS: Hematocrit 30.1 % (36.0-46.0); Hemoglobin 10.1 g/dL (12.2-16.2); Mean Corpuscular Hemoglobin 29.6 pg (28.0-32.0); Mean Corpuscular Hgb Conc. 33.7 g/dL (32.0-36.0); Mean Corpuscular Volume 87.8 fL (80.0-100.0); Red Blood Cells 3.43 10^6/uL (4.0-5.20); White Blood Cell 5.7 10^3/uL (4.4-10.8)
[2023-02-20] MEDS: MIDODRINE HCL 10 MG TAB PO SCH ×3 (06:14→21:38)
[2023-02-20] MEDS: PREGABALIN 25 MG CAP PO SCH ×3 (06:15→21:38)
[2023-02-20] MEDS: BUMETANIDE 1mg/4ml VIAL (0.25mg/ml) IV SCH (06:17)
[2023-02-20] MEDS: SODIUM CHLOR 0.9% PF (SALINE LOCK) 10ML VIAL/SYR IV SCH ×3 (06:21→21:39)
[2023-02-20 06:23] LABS: Alanine Aminotransferase 17 U/L (7-40); Albumin 3.7 g/dL (3.2-4.8); Alkaline Phosphatase 71 U/L (46-116); Anion Gap 12 (5-15); Aspartate Aminotransferase 15 U/L (13-40); BUN/Creatinine Ratio 29.5 (10.0-20.0); Bilirubin, Total 0.4 mg/dL (0.2-1.0); Blood Urea Nitrogen 38 mg/dL (9-23); Calcium 9.6 mg/dL (8.5-10.1); Carbon Dioxide 29 mmol/L (20-30); Chloride 91 mmol/L (98-107); Glucose 141 mg/dL (74-106); Sodium 132 mmol/L (136-145); Total Protein 5.9 g/dL (5.7-8.2)
[2023-02-20] MEDS: IPRATROPIUM BROM 0.5 MG/2.5ML INH SOL NEB SCH ×3 (06:27→19:33)
[2023-02-20] MEDS: BUDESONIDE (INHALATION) 0.5 MG/2 ML NEB NEB SCH ×2 (06:28→19:35)
[2023-02-20] MEDS: ALBUTEROL SULF 2.5 MG/0.5ML(0.5%) NEB SOLN NEB SCH ×3 (06:28→19:33)
[2023-02-20 06:36] LABS: Band Neutrophils % (manual) 0; Basophils % (manual) 0 (0.0-2.0); Blast Cells 0; Eosinophils % (manual) 0 (0-7); Metamyelocytes % 0; Myelocytes % 0; Promyelocytes % 0; Reactive Lymphocytes 0
[2023-02-20] MEDS: NOREPINEPHRINE 8 MG/250ML KIT 250 ML IV SCH (07:15)
[2023-02-20] MEDS: DOCUSATE SOD 100 MG CAP PO SCH ×2 (08:25→21:38)
[2023-02-20] MEDS: DOXYCYCLINE 100 MG TAB/CAP PO SCH ×2 (08:25→21:38)
[2023-02-20] MEDS: CALCIUM ACETATE 667 MG CAP PO SCH ×3 (08:25→19:03)
[2023-02-20] MEDS: FERROUS SULFATE 325mg EC TAB PO SCH ×2 (08:25→19:03)
[2023-02-20] MEDS: PANTOPRAZOLE 40 MG/10 ML VIAL INJ IV SCH ×2 (08:25→21:39)
[2023-02-20] MEDS: DULoxetine HCL 30 MG CAP PO SCH (08:25)
[2023-02-20] MEDS: methylPREDNISolone SOD SUCC 40 MG/ML VL IV SCH ×2 (08:25→21:38)
[2023-02-20 09:22] LABS: Lymphocytes % (manual) 13 (10.0-50.0); Monocytes % (manual) 4 (0-12); Platelet Estimate Adequate
[2023-02-20] MEDS ORDERED: LORazepam 2MG/ML-1ML VIAL IV PRN (09:30)
[2023-02-20] MEDS: POTASSIUM CHL 20MEQ/100ML 100 ML IV SCH ×3 (10:46→14:14)
[2023-02-20] MEDS: ATORVASTATIN 20 MG TAB PO SCH (21:39)
[2023-02-21] VITALS (18 sets, daily range): BP systolic 112–139; BP diastolic 48–86; PULSE 63–98; RESP 14–20; TEMP 98–98.4; O2SAT 92–100
[2023-02-21] MEDS: MIDODRINE HCL 10 MG TAB PO SCH ×3 (05:32→22:35)
[2023-02-21] MEDS: PREGABALIN 25 MG CAP PO SCH ×3 (05:32→22:35)
[2023-02-21 05:58] LABS: Anion Gap 6 (5-15); Carbon Dioxide 33 mmol/L (20-30); Chloride 94 mmol/L (98-107); Potassium 3.8 mmol/L (3.5-5.1); Sodium 133 mmol/L (136-145)
[2023-02-21 05:59] LABS: Calcium 9.6 mg/dL (8.7-10.4)
[2023-02-21 06:04] LABS: BUN/Creatinine Ratio 31.8 (10.0-20.0); Blood Urea Nitrogen 41 mg/dL (9-23); Glucose 133 mg/dL (74-106)
[2023-02-21] MEDS: ALBUTEROL SULF 2.5 MG/0.5ML(0.5%) NEB SOLN NEB SCH ×4 (08:00→19:20)
[2023-02-21] MEDS: BUDESONIDE (INHALATION) 0.5 MG/2 ML NEB NEB SCH ×2 (08:00→19:20)
[2023-02-21] MEDS: IPRATROPIUM BROM 0.5 MG/2.5ML INH SOL NEB SCH ×4 (08:00→19:20)
[2023-02-21] MEDS: DULoxetine HCL 30 MG CAP PO SCH (09:10)
[2023-02-21] MEDS: FERROUS SULFATE 325mg EC TAB PO SCH ×2 (09:11→18:09)
[2023-02-21] MEDS: DOXYCYCLINE 100 MG TAB/CAP PO SCH ×2 (09:11→22:35)
[2023-02-21] MEDS: DOCUSATE SOD 100 MG CAP PO SCH ×2 (09:11→22:00)
[2023-02-21] MEDS: CALCIUM ACETATE 667 MG CAP PO SCH ×3 (09:11→18:08)
[2023-02-21] MEDS: PANTOPRAZOLE 40 MG/10 ML VIAL INJ IV SCH ×2 (09:12→22:34)
[2023-02-21] MEDS: SODIUM CHLOR 0.9% PF (SALINE LOCK) 10ML VIAL/SYR IV SCH ×2 (09:12→22:00)
[2023-02-21] MEDS: methylPREDNISolone SOD SUCC 40 MG/ML VL IV SCH (09:12)
[2023-02-21] MEDS ORDERED: BUMETANIDE 1mg/4ml VIAL (0.25mg/ml) IV SCH (10:00)
[2023-02-21] MEDS: FUROSEMIDE 40 MG TAB PO SCH (18:09)
[2023-02-21] MEDS: ZOLPIDEM TARTRATE 5 MG TAB PO SCH (22:35)
[2023-02-21] MEDS: ATORVASTATIN 20 MG TAB PO SCH (22:36)
[2023-02-22] VITALS (16 sets, daily range): BP systolic 111–120; BP diastolic 50–58; PULSE 61–83; RESP 17–21; TEMP 97.1–98.6; O2SAT 94–100
[2023-02-22] MEDS: MIDODRINE HCL 10 MG TAB PO SCH ×3 (05:59→22:41)
[2023-02-22] MEDS: FUROSEMIDE 40 MG TAB PO SCH ×2 (06:00→18:08)
[2023-02-22] MEDS: PREGABALIN 25 MG CAP PO SCH ×3 (06:00→22:40)
[2023-02-22 06:33] LABS: Anion Gap 8 (5-15); Carbon Dioxide 34 mmol/L (20-30); Chloride 94 mmol/L (98-107); Potassium 3.3 mmol/L (3.5-5.1); Sodium 136 mmol/L (136-145)
[2023-02-22 06:39] LABS: BUN/Creatinine Ratio 29.9 (10.0-20.0); Blood Urea Nitrogen 40 mg/dL (9-23); Glucose 101 mg/dL (74-106)
[2023-02-22] MEDS: ALBUTEROL SULF 2.5 MG/0.5ML(0.5%) NEB SOLN NEB SCH ×3 (06:49→18:24)
[2023-02-22] MEDS: IPRATROPIUM BROM 0.5 MG/2.5ML INH SOL NEB SCH ×3 (06:49→18:24)
[2023-02-22] MEDS: BUDESONIDE (INHALATION) 0.5 MG/2 ML NEB NEB SCH ×2 (06:49→18:24)
[2023-02-22] MEDS ORDERED: POTASSIUM EFFERVESENT TAB 25 MEQ PO ONE (09:15)
[2023-02-22] MEDS: DULoxetine HCL 30 MG CAP PO SCH (10:09)
[2023-02-22] MEDS: CALCIUM ACETATE 667 MG CAP PO SCH ×3 (10:09→18:08)
[2023-02-22] MEDS: DOXYCYCLINE 100 MG TAB/CAP PO SCH ×2 (10:09→22:41)
[2023-02-22] MEDS: FERROUS SULFATE 325mg EC TAB PO SCH ×2 (10:10→18:08)
[2023-02-22] MEDS: PANTOPRAZOLE 40 MG/10 ML VIAL INJ IV SCH ×2 (10:10→22:40)
[2023-02-22] MEDS: methylPREDNISolone SOD SUCC 40 MG/ML VL IV SCH (10:10)
[2023-02-22] MEDS: SODIUM CHLOR 0.9% PF (SALINE LOCK) 10ML VIAL/SYR IV SCH ×2 (10:10→22:40)
[2023-02-22] MEDS: DOCUSATE SOD 100 MG CAP PO SCH ×2 (10:37→22:40)
[2023-02-22] MEDS: ZOLPIDEM TARTRATE 5 MG TAB PO SCH (22:40)
[2023-02-22] MEDS: ATORVASTATIN 20 MG TAB PO SCH (22:41)
[2023-02-23] VITALS (12 sets, daily range): BP systolic 119–133; BP diastolic 57–66; PULSE 62–81; RESP 14–63; TEMP 97.5–98; O2SAT 94–99
[2023-02-23] MEDS: PREGABALIN 25 MG CAP PO SCH ×3 (06:09→23:03)
[2023-02-23] MEDS: MIDODRINE HCL 10 MG TAB PO SCH ×3 (06:09→22:00)
[2023-02-23] MEDS: FUROSEMIDE 40 MG TAB PO SCH ×2 (06:09→18:46)
[2023-02-23] MEDS: ALBUTEROL SULF 2.5 MG/0.5ML(0.5%) NEB SOLN NEB SCH ×3 (07:00→18:56)
[2023-02-23] MEDS: BUDESONIDE (INHALATION) 0.5 MG/2 ML NEB NEB SCH ×2 (07:00→18:55)
[2023-02-23] MEDS: IPRATROPIUM BROM 0.5 MG/2.5ML INH SOL NEB SCH ×3 (07:00→18:55)
[2023-02-23] MEDS: SODIUM CHLOR 0.9% PF (SALINE LOCK) 10ML VIAL/SYR IV SCH ×2 (09:37→23:01)
[2023-02-23] MEDS: PANTOPRAZOLE 40 MG/10 ML VIAL INJ IV SCH ×2 (09:37→23:00)
[2023-02-23] MEDS: methylPREDNISolone SOD SUCC 40 MG/ML VL IV SCH (09:37)
[2023-02-23] MEDS: DOCUSATE SOD 100 MG CAP PO SCH ×2 (09:37→23:00)
[2023-02-23] MEDS: DULoxetine HCL 30 MG CAP PO SCH (09:38)
[2023-02-23] MEDS: CALCIUM ACETATE 667 MG CAP PO SCH (09:38)
[2023-02-23] MEDS: FERROUS SULFATE 325mg EC TAB PO SCH ×2 (09:38→18:46)
[2023-02-23] MEDS: DOXYCYCLINE 100 MG TAB/CAP PO SCH ×2 (09:38→23:02)
[2023-02-23] MEDS ORDERED: LORazepam 2MG/ML-1ML VIAL IV ONE (13:15)
[2023-02-23] MEDS: ZOLPIDEM TARTRATE 5 MG TAB PO SCH (23:01)
[2023-02-23] MEDS: ATORVASTATIN 20 MG TAB PO SCH (23:01)
[2023-02-24] VITALS (14 sets, daily range): BP systolic 110–130; BP diastolic 48–63; PULSE 63–83; RESP 16–20; TEMP 98.3–99; O2SAT 94–100
[2023-02-24] MEDS: PREGABALIN 25 MG CAP PO SCH ×3 (05:34→23:03)
[2023-02-24] MEDS: FUROSEMIDE 40 MG TAB PO SCH ×2 (05:35→17:58)
[2023-02-24] MEDS: MIDODRINE HCL 10 MG TAB PO SCH ×3 (05:39→23:03)
[2023-02-24] MEDS: BUDESONIDE (INHALATION) 0.5 MG/2 ML NEB NEB SCH ×2 (06:54→19:09)
[2023-02-24] MEDS: IPRATROPIUM BROM 0.5 MG/2.5ML INH SOL NEB SCH ×3 (06:54→19:09)
[2023-02-24] MEDS: ALBUTEROL SULF 2.5 MG/0.5ML(0.5%) NEB SOLN NEB SCH ×3 (06:54→19:09)
[2023-02-24] MEDS: FERROUS SULFATE 325mg EC TAB PO SCH ×2 (08:35→17:55)
[2023-02-24] MEDS: DOCUSATE SOD 100 MG CAP PO SCH ×2 (09:27→23:03)
[2023-02-24] MEDS: DULoxetine HCL 30 MG CAP PO SCH (09:27)
[2023-02-24] MEDS: DOXYCYCLINE 100 MG TAB/CAP PO SCH ×2 (09:27→23:03)
[2023-02-24] MEDS: POTASSIUM EFFERVESENT TAB 25 MEQ PO SCH (09:28)
[2023-02-24] MEDS: PANTOPRAZOLE 40 MG/10 ML VIAL INJ IV SCH ×2 (09:28→23:03)
[2023-02-24] MEDS: methylPREDNISolone SOD SUCC 40 MG/ML VL IV SCH (09:28)
[2023-02-24] MEDS: SODIUM CHLOR 0.9% PF (SALINE LOCK) 10ML VIAL/SYR IV SCH ×2 (09:28→23:04)
[2023-02-24] MEDS: ZOLPIDEM TARTRATE 5 MG TAB PO SCH (23:03)
[2023-02-24] MEDS: ATORVASTATIN 20 MG TAB PO SCH (23:03)
[2023-02-25] VITALS (13 sets, daily range): BP systolic 112–133; BP diastolic 53–61; PULSE 62–80; RESP 17–18; TEMP 97.5–98.7; O2SAT 93–100
[2023-02-25] MEDS: PREGABALIN 25 MG CAP PO SCH ×3 (05:45→21:26)
[2023-02-25] MEDS: MIDODRINE HCL 10 MG TAB PO SCH ×3 (05:46→21:27)
[2023-02-25] MEDS: FUROSEMIDE 40 MG TAB PO SCH ×2 (05:46→18:00)
[2023-02-25] MEDS: ALBUTEROL SULF 2.5 MG/0.5ML(0.5%) NEB SOLN NEB SCH ×3 (07:12→18:28)
[2023-02-25] MEDS: BUDESONIDE (INHALATION) 0.5 MG/2 ML NEB NEB SCH ×2 (07:12→18:28)
[2023-02-25] MEDS: IPRATROPIUM BROM 0.5 MG/2.5ML INH SOL NEB SCH ×3 (07:12→18:28)
[2023-02-25] MEDS: methylPREDNISolone SOD SUCC 40 MG/ML VL IV SCH (09:54)
[2023-02-25] MEDS: PANTOPRAZOLE 40 MG/10 ML VIAL INJ IV SCH ×2 (09:55→21:25)
[2023-02-25] MEDS: POTASSIUM EFFERVESENT TAB 25 MEQ PO SCH (09:58)
[2023-02-25] MEDS: DOCUSATE SOD 100 MG CAP PO SCH ×2 (09:58→21:26)
[2023-02-25] MEDS: FERROUS SULFATE 325mg EC TAB PO SCH ×2 (09:58→18:00)
[2023-02-25] MEDS: DULoxetine HCL 30 MG CAP PO SCH (09:58)
[2023-02-25] MEDS: DOXYCYCLINE 100 MG TAB/CAP PO SCH ×2 (09:59→21:27)
[2023-02-25] MEDS: SODIUM CHLOR 0.9% PF (SALINE LOCK) 10ML VIAL/SYR IV SCH ×2 (10:05→21:28)
[2023-02-25] MEDS: ATORVASTATIN 20 MG TAB PO SCH (21:27)
[2023-02-25] MEDS: ZOLPIDEM TARTRATE 5 MG TAB PO SCH (21:27)
[2023-02-26] VITALS (17 sets, daily range): BP systolic 118–129; BP diastolic 50–61; PULSE 59–78; RESP 16–20; TEMP 98–99.1; O2SAT 95–100
[2023-02-26] MEDS: MIDODRINE HCL 10 MG TAB PO SCH ×3 (05:33→21:27)
[2023-02-26] MEDS: FUROSEMIDE 40 MG TAB PO SCH ×2 (05:34→18:40)
[2023-02-26] MEDS: PREGABALIN 25 MG CAP PO SCH ×3 (05:34→21:28)
[2023-02-26] MEDS: IPRATROPIUM BROM 0.5 MG/2.5ML INH SOL NEB SCH ×3 (06:02→19:19)
[2023-02-26] MEDS: ALBUTEROL SULF 2.5 MG/0.5ML(0.5%) NEB SOLN NEB SCH ×3 (06:02→19:19)
[2023-02-26] MEDS: BUDESONIDE (INHALATION) 0.5 MG/2 ML NEB NEB SCH ×2 (06:02→19:19)
[2023-02-26] MEDS: DOCUSATE SOD 100 MG CAP PO SCH ×2 (09:50→21:28)
[2023-02-26] MEDS: DOXYCYCLINE 100 MG TAB/CAP PO SCH ×2 (09:50→21:27)
[2023-02-26] MEDS: DULoxetine HCL 30 MG CAP PO SCH (09:50)
[2023-02-26] MEDS: PANTOPRAZOLE 40 MG/10 ML VIAL INJ IV SCH ×2 (09:50→21:28)
[2023-02-26] MEDS: FERROUS SULFATE 325mg EC TAB PO SCH ×2 (09:50→18:39)
[2023-02-26] MEDS: methylPREDNISolone SOD SUCC 40 MG/ML VL IV SCH (09:50)
[2023-02-26] MEDS: SODIUM CHLOR 0.9% PF (SALINE LOCK) 10ML VIAL/SYR IV SCH ×2 (10:00→21:28)
[2023-02-26] MEDS ORDERED: BISACODYL 10 MG RECT SUPP PR ONE (10:30)
[2023-02-26] MEDS ORDERED: FLEET ENEMA(ADULT) 135 ML PR ONE (10:30)
[2023-02-26 11:41] LABS: Basophils # (auto) 0 10 ^3/uL (0-0.2); Basophils % (auto) 0.1 % (0.0-2.0); Eosinophils # (auto) 0.1 10 ^3/uL (0-0.8); Eosinophils % (auto) 0.4 % (0.0-7.0); Hematocrit 34.5 % (36.0-46.0); Hemoglobin 10.9 g/dL (12.2-16.2); Lymphocytes # (auto) 1.6 10 ^3/uL (0.4-5.4); Lymphocytes % (auto) 10.2 % (10.0-50.0); Mean Corpuscular Hemoglobin 28.3 pg (28.0-32.0); Mean Corpuscular Hgb Conc. 31.6 g/dL (32.0-36.0); Mean Corpuscular Volume 89.6 fL (80.0-100.0); Monocytes # (auto) 0.8 10 ^3/uL (0-1.3); Monocytes % (auto) 5.6 % (0.0-12.0); Neutrophils # (auto) 12.7 10 ^3/uL (1.6-8.6); Neutrophils % (auto) 83.7 % (37.0-80.0); Nucleated Red Blood Cells % 0.1 %; Red Blood Cells 3.85 10^6/uL (4.0-5.20); Red Cell Distribution Width 15.1 % (11.8-14.3); White Blood Cell 15.2 10^3/uL (4.4-10.8)
[2023-02-26 16:38] LABS: Chloride 92 mmol/L (98-107); Potassium 3.2 mmol/L (3.5-5.1); Sodium 141 mmol/L (136-145)
[2023-02-26 16:40] LABS: Calcium 9.9 mg/dL (8.5-10.1)
[2023-02-26 16:44] LABS: BUN/Creatinine Ratio 27.7 (10.0-20.0); Blood Urea Nitrogen 39 mg/dL (9-23); Glucose 147 mg/dL (74-106)
[2023-02-26 17:01] LABS: Anion Gap 8.99999 (5-15)
[2023-02-26 17:04] LABS: Carbon Dioxide > 40 mmol/L (20-30)
[2023-02-26] MEDS: POTASSIUM EFFERVESENT TAB 25 MEQ PO SCH (18:39)
[2023-02-26] MEDS: ZOLPIDEM TARTRATE 5 MG TAB PO SCH (21:27)
[2023-02-26] MEDS: LACTULOSE 20Gm/30ML SOLN PO SCH (21:28)
[2023-02-26] MEDS: ATORVASTATIN 20 MG TAB PO SCH (21:28)
[2023-02-27] VITALS (16 sets, daily range): BP systolic 91–122; BP diastolic 51–68; PULSE 60–81; RESP 16–22; TEMP 97.2–97.8; O2SAT 86–100
[2023-02-27] MEDS: BUDESONIDE (INHALATION) 0.5 MG/2 ML NEB NEB SCH ×2 (06:46→19:53)
[2023-02-27] MEDS: IPRATROPIUM BROM 0.5 MG/2.5ML INH SOL NEB SCH ×3 (06:46→19:54)
[2023-02-27] MEDS: ALBUTEROL SULF 2.5 MG/0.5ML(0.5%) NEB SOLN NEB SCH ×3 (06:46→19:55)
[2023-02-27] MEDS: PREGABALIN 25 MG CAP PO SCH ×3 (07:00→21:44)
[2023-02-27] MEDS: FUROSEMIDE 40 MG TAB PO SCH (07:01)
[2023-02-27] MEDS: MIDODRINE HCL 10 MG TAB PO SCH ×3 (07:01→21:17)
[2023-02-27] MEDS: FERROUS SULFATE 325mg EC TAB PO SCH ×2 (09:26→18:43)
[2023-02-27] MEDS: POTASSIUM EFFERVESENT TAB 25 MEQ PO SCH (10:00)
[2023-02-27] MEDS: SODIUM CHLOR 0.9% PF (SALINE LOCK) 10ML VIAL/SYR IV SCH ×2 (10:00→21:18)
[2023-02-27] MEDS: LACTULOSE 20Gm/30ML SOLN PO SCH ×3 (10:00→21:18)
[2023-02-27] MEDS: methylPREDNISolone SOD SUCC 40 MG/ML VL IV SCH (11:03)
[2023-02-27] MEDS: PANTOPRAZOLE 40 MG/10 ML VIAL INJ IV SCH ×2 (11:03→21:18)
[2023-02-27] MEDS: DULoxetine HCL 30 MG CAP PO SCH (11:04)
[2023-02-27] MEDS: DOCUSATE ORAL LIQUID 100 MG/10 ML UD PO SCH ×2 (11:04→21:17)
[2023-02-27] MEDS: DOXYCYCLINE 100 MG TAB/CAP PO SCH (11:05)
[2023-02-27 12:21] LABS: Base Excess 13.5 mmol/L (-2.0-2.0)
[2023-02-27] MEDS ORDERED: MEROPENEM 1GM IVPB 100 ML IV ONE ×2 (13:00)
[2023-02-27] MEDS: FLUCONAZOLE 200MG/100ML 100 ML IV SCH (17:14)
[2023-02-27] MEDS: ATORVASTATIN 20 MG TAB PO SCH (21:14)
[2023-02-27] MEDS: MEROPENEM 500MG IVPB 50 ML IV SCH (21:42)
[2023-02-27] MEDS: ZOLPIDEM TARTRATE 5 MG TAB PO SCH (21:44)
[2023-02-28] VITALS (21 sets, daily range): BP systolic 107–121; BP diastolic 40–60; PULSE 61–88; RESP 16–22; TEMP 97.5–98.8; O2SAT 91–100
[2023-02-28] MEDS: PREGABALIN 25 MG CAP PO SCH (06:10)
[2023-02-28] MEDS: MIDODRINE HCL 10 MG TAB PO SCH ×3 (06:10→21:39)
[2023-02-28] MEDS: ALBUTEROL SULF 2.5 MG/0.5ML(0.5%) NEB SOLN NEB SCH ×3 (06:17→18:00)
[2023-02-28] MEDS: BUDESONIDE (INHALATION) 0.5 MG/2 ML NEB NEB SCH ×2 (06:17→18:01)
[2023-02-28] MEDS: IPRATROPIUM BROM 0.5 MG/2.5ML INH SOL NEB SCH ×3 (06:17→18:01)
[2023-02-28] MEDS: FERROUS SULFATE 325mg EC TAB PO SCH ×2 (08:30→17:30)
[2023-02-28] MEDS: LACTULOSE 20Gm/30ML SOLN PO SCH ×2 (10:23→21:38)
[2023-02-28] MEDS: DULoxetine HCL 30 MG CAP PO SCH (10:23)
[2023-02-28] MEDS: DOCUSATE ORAL LIQUID 100 MG/10 ML UD PO SCH ×2 (10:23→21:38)
[2023-02-28] MEDS: POTASSIUM EFFERVESENT TAB 25 MEQ PO SCH (10:24)
[2023-02-28] MEDS: FLUCONAZOLE 200MG/100ML 100 ML IV SCH (10:24)
[2023-02-28] MEDS: PANTOPRAZOLE 40 MG/10 ML VIAL INJ IV SCH (10:26)
[2023-02-28] MEDS: methylPREDNISolone SOD SUCC 40 MG/ML VL IV SCH (10:26)
[2023-02-28] MEDS: SODIUM CHLOR 0.9% PF (SALINE LOCK) 10ML VIAL/SYR IV SCH ×2 (10:27→21:39)
[2023-02-28 11:01] LABS: Anion Gap 11 (5-15); Carbon Dioxide 36 mmol/L (20-30); Chloride 98 mmol/L (98-107); Sodium 145 mmol/L (136-145)
[2023-02-28 11:07] LABS: BUN/Creatinine Ratio 25.5 (10.0-20.0); Blood Urea Nitrogen 35 mg/dL (9-23); Glucose 89 mg/dL (74-106)
[2023-02-28 11:10] LABS: Basophils # (auto) 0 10 ^3/uL (0-0.2); Basophils % (auto) 0.1 % (0.0-2.0); Eosinophils # (auto) 0 10 ^3/uL (0-0.8); Eosinophils % (auto) 0.1 % (0.0-7.0); Hematocrit 34.4 % (36.0-46.0); Hemoglobin 11.1 g/dL (12.2-16.2); Lymphocytes # (auto) 1.2 10 ^3/uL (0.4-5.4); Lymphocytes % (auto) 9.7 % (10.0-50.0); Mean Corpuscular Hemoglobin 28.8 pg (28.0-32.0); Mean Corpuscular Hgb Conc. 32.4 g/dL (32.0-36.0); Mean Corpuscular Volume 89.1 fL (80.0-100.0); Monocytes % (auto) 8.1 % (0.0-12.0); Neutrophils # (auto) 10.1 10 ^3/uL (1.6-8.6); Nucleated Red Blood Cells % 0.1 %; Red Blood Cells 3.86 10^6/uL (4.0-5.20); Red Cell Distribution Width 15.2 % (11.8-14.3); White Blood Cell 12.3 10^3/uL (4.4-10.8)
[2023-02-28] MEDS ORDERED: POTASSIUM CHL 20 Meq TABLET PO ONE (11:45)
[2023-02-28] MEDS: MEROPENEM 500MG IVPB 50 ML IV SCH (12:46)
[2023-02-28] MEDS ORDERED: POTASSIUM EFFERVESENT TAB 25 MEQ PO ONE (15:30)
[2023-02-28] MEDS ORDERED: POTASSIUM CHLORIDE 40 MEQ, LIDOCAINE 1% (LOCAL ANESTH.) 4 ML in SODIUM CHL 0.9% 250 ML IV ONE (16:15)
[2023-02-28] MEDS: ATORVASTATIN 20 MG TAB PO SCH (21:39)
[2023-03-01] VITALS (12 sets, daily range): BP systolic 115–117; BP diastolic 61–68; PULSE 59–89; RESP 17–22; TEMP 97.5–98.1; O2SAT 96–100
[2023-03-01] MEDS: MEROPENEM 500MG IVPB 50 ML IV SCH ×2 (00:24→12:32)
[2023-03-01 05:10] LABS: Basophils # (auto) 0 10 ^3/uL (0-0.2); Basophils % (auto) 0.1 % (0.0-2.0); Eosinophils # (auto) 0 10 ^3/uL (0-0.8); Hematocrit 35.5 % (36.0-46.0); Hemoglobin 11.5 g/dL (12.2-16.2); Lymphocytes # (auto) 0.9 10 ^3/uL (0.4-5.4); Lymphocytes % (auto) 7.8 % (10.0-50.0); Mean Corpuscular Hgb Conc. 32.3 g/dL (32.0-36.0); Mean Corpuscular Volume 89.7 fL (80.0-100.0); Monocytes % (auto) 8.9 % (0.0-12.0); Neutrophils % (auto) 83.2 % (37.0-80.0); Red Blood Cells 3.96 10^6/uL (4.0-5.20); Red Cell Distribution Width 15.2 % (11.8-14.3); White Blood Cell 10.8 10^3/uL (4.4-10.8)
[2023-03-01 05:18] LABS: Chloride 102 mmol/L (98-107); Potassium 5.1 mmol/L (3.5-5.1); Sodium 142 mmol/L (136-145)
[2023-03-01 05:19] LABS: Anion Gap 5 (5-15); Carbon Dioxide 35 mmol/L (20-30)
[2023-03-01 05:20] LABS: Calcium 9.8 mg/dL (8.7-10.4)
[2023-03-01 05:25] LABS: Glucose 94 mg/dL (74-106)
[2023-03-01 05:27] LABS: BUN/Creatinine Ratio 18.6 (10.0-20.0); Blood Urea Nitrogen 27 mg/dL (9-23)
[2023-03-01] MEDS: MIDODRINE HCL 10 MG TAB PO SCH ×2 (06:16→14:00)
[2023-03-01] MEDS: IPRATROPIUM BROM 0.5 MG/2.5ML INH SOL NEB SCH ×2 (06:38→12:56)
[2023-03-01] MEDS: ALBUTEROL SULF 2.5 MG/0.5ML(0.5%) NEB SOLN NEB SCH ×2 (06:38→12:56)
[2023-03-01] MEDS: FERROUS SULFATE 325mg EC TAB PO SCH (08:04)
[2023-03-01] MEDS: DOCUSATE ORAL LIQUID 100 MG/10 ML UD PO SCH (09:46)
[2023-03-01] MEDS: FLUCONAZOLE 200MG/100ML 100 ML IV SCH (09:46)
[2023-03-01] MEDS: LACTULOSE 20Gm/30ML SOLN PO SCH (09:46)
[2023-03-01] MEDS: DULoxetine HCL 30 MG CAP PO SCH (09:46)
[2023-03-01] MEDS: methylPREDNISolone SOD SUCC 40 MG/ML VL IV SCH (09:48)
[2023-03-01] MEDS ORDERED: FUROSEMIDE 40 MG TAB PO SCH ×2 (10:00→18:00)
[2023-03-01] MEDS: SODIUM CHLOR 0.9% PF (SALINE LOCK) 10ML VIAL/SYR IV SCH (10:00)
[2023-03-01] MEDS ORDERED: PANTOPRAZOLE 40 MG TAB PO SCH (10:00)
[2023-03-01] MEDS: BUDESONIDE (INHALATION) 0.5 MG/2 ML NEB NEB SCH (10:01)
== END 2023-03-01 15:45 | DRG 871 ==
LOC: ER 12:22 → TELE 16:56 → TELE-CENTR 02-14 02:25 → DOU IN ICU 02-16 08:16 → ICU CENTRL 02-16 11:38 → DOU IN ICU 02-19 23:50 → TELE-EAST 02-20 16:38
PROVIDERS: ADMIT Nurse Practitioner Acute Care; ATTEND Nurse Practitioner Acute Care
PROC: 02HV33Z Insertion of Infusion Device into Superior Vena Cava, Percutaneous Approach (ICD-10-PCS; principal; 2023-02-16)
PROC: 5A09357 Assistance with Respiratory Ventilation, Less than 24 Consecutive Hours, Continuous Positive Airway Pressure (ICD-10-PCS; 2023-02-20)
PROC: 5A09357 Assistance with Respiratory Ventilation, Less than 24 Consecutive Hours, Continuous Positive Airway Pressure (ICD-10-PCS; 2023-02-26)
PROC: 5A09357 Assistance with Respiratory Ventilation, Less than 24 Consecutive Hours, Continuous Positive Airway Pressure (ICD-10-PCS; 2023-02-27)
PROC: 5A09357 Assistance with Respiratory Ventilation, Less than 24 Consecutive Hours, Continuous Positive Airway Pressure (ICD-10-PCS; 2023-02-28)
DX: A41.9 Sepsis, unspecified organism (principal); G93.41 Metabolic encephalopathy; I50.21 Acute systolic (congestive) heart failure; N17.0 Acute kidney failure with tubular necrosis; J96.21 Acute and chronic respiratory failure with hypoxia; R65.21 Severe sepsis with septic shock; J15.69 Pneumonia due to other Gram-negative bacteria; J15.9 Unspecified bacterial pneumonia; I13.0 Hypertensive heart and chronic kidney disease with heart failure and stage 1 through stage 4 chronic kidney disease, or unspecified chronic kidney disease; E87.1 Hypo-osmolality and hyponatremia; N39.0 Urinary tract infection, site not specified; K92.2 Gastrointestinal hemorrhage, unspecified; D63.1 Anemia in chronic kidney disease; E66.9 Obesity, unspecified; E87.5 Hyperkalemia; I27.20 Pulmonary hypertension, unspecified; Z68.35 Body mass index [BMI] 35.0-35.9, adult; E86.0 Dehydration; E78.5 Hyperlipidemia, unspecified; C50.919 Malignant neoplasm of unspecified site of unspecified female breast; B34.9 Viral infection, unspecified; G47.33 Obstructive sleep apnea (adult) (pediatric); G89.29 Other chronic pain; J43.9 Emphysema, unspecified; K44.9 Diaphragmatic hernia without obstruction or gangrene; F17.200 Nicotine dependence, unspecified, uncomplicated; G47.00 Insomnia, unspecified; R65.20 Severe sepsis without septic shock; N18.32 Chronic kidney disease, stage 3b; K80.20 Calculus of gallbladder without cholecystitis without obstruction; M35.00 Sjogren syndrome, unspecified; M79.7 Fibromyalgia; K21.9 Gastro-esophageal reflux disease without esophagitis; G62.9 Polyneuropathy, unspecified; Z88.2 Allergy status to sulfonamides; Z85.3 Personal history of malignant neoplasm of breast; Z90.13 Acquired absence of bilateral breasts and nipples; Z79.82 Long term (current) use of aspirin; Z79.899 Other long term (current) drug therapy; Z83.3 Family history of diabetes mellitus; Z82.49 Family history of ischemic heart disease and other diseases of the circulatory system; Z68.30 Body mass index [BMI] 30.0-30.9, adult
CPT/HCPCS: 36415; 36569; 36600; 70450; 70547; 70551; 71045; 71250; 76775; 80048; 80053; 80202; 81001; 82306; 82570; 82728; 82805; 82962; 83540; 83550; 83735; 83880; 83930; 83935; 83970; 84100; 84132; 84156; 84300; 84484; 84550; 85007; 85025; 85027; 85610; 85730; 87040; 87070; 87077; 87081; 87086; 87205; 87804; 93005; 93306; 94640; 94660; 97110; 97116; 97163; 97530; C9113; G0378; J1450; J2001; J2185; J2405; J3480; J3490